=== PATIENT | male | born 2000 | race African-American/Black ===

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

== ENCOUNTER 2021-08-10 05:28 | Emergency (ER) | payer MEDICAID ==
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
[2021-08-10] MEDS ORDERED: Sodium Chloride 0.9% 1,000 ML IV SCH (06:30)
[2021-08-10] MEDS ORDERED: Iopamidol 612 MG/ML 50 ML SDV IVPUSH ONE (06:48)
[2021-08-10] MEDS ORDERED: Iopamidol 612 MG/ML 100 ML Bottle IVPUSH ONE (06:48)
[2021-08-10] MEDS ORDERED: Lidocaine 1% 10 ML MDV INJECT ONE (07:44)
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
[2021-08-10] MEDS ORDERED: Cephalexin 500 MG Cap PO ONE (08:54)
== END 2021-08-10 09:13 | disposition home or self-care (01) ==
LOC: JD.ED 05:28
DX: S21.212A Laceration without foreign body of left back wall of thorax without penetration into thoracic cavity, initial encounter (principal); X58.XXXA Exposure to other specified factors, initial encounter
CPT/HCPCS: 12001; 36415; 71260; 74177; 80053; 99283; J7030; Q9967

== ENCOUNTER 2025-01-14 09:38 | Emergency (ER) | payer SELFPAY | END 2025-01-14 11:34 | disposition home or self-care (01) | LOC: JD.ED 09:38 | DX: J02.8 Acute pharyngitis due to other specified organisms (principal); Z79.899 Other long term (current) drug therapy | CPT/HCPCS: 87651; 99283 ==